=== PATIENT | male | born 1960 | race Caucasian/White ===

== ENCOUNTER → 2017-07-25 | Outpatient (CLI) | payer MEDICAID | LOC: BRMIMAGING 16:05 | PROVIDERS: ATTEND Family Medicine | DX: S43.101A Unspecified dislocation of right acromioclavicular joint, initial encounter (principal); M18.12 Unilateral primary osteoarthritis of first carpometacarpal joint, left hand | CPT/HCPCS: 73030-PO; 73130-PO ==